=== PATIENT | female | born 2000 | race Caucasian/White ===

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

== ENCOUNTER 2023-05-01 20:26 | Emergency (ER) | payer OTHER ==
[2023-05-01 20:31] VITALS: BP 114/77; PULSE 81; RESP 16; TEMP 98.3; BMI 22.1
== END 2023-05-01 23:22 | disposition left against medical advice (07) ==
LOC: JERFT 20:26 → JER 20:26 → JERFT 23:22
DX: J00 Acute nasopharyngitis [common cold] (principal); Z20.822 Contact with and (suspected) exposure to COVID-19
CPT/HCPCS: 0241U-QW; 99283-25